=== PATIENT | female | born 1970 ===

== ENCOUNTER 2017-06-30 11:10 | Inpatient (IN) | payer OTHER ==
[~2017-06-30] VITALS: Ht 154.9 cm; Wt 81.6 kg
[2017-07-07] MEDS ORDERED: Mylicon 125MG PO (11:47)
[2017-07-07] MEDS ORDERED: DOCUSATE SODIU100 MG PO (11:47)
[2017-07-07] MEDS ORDERED: AMLODIPINE BESYL5 MG PO (11:47)
[2017-07-07] MEDS ORDERED: OXYC1TAB9 PO (11:47)
== END 2017-07-07 12:28 | disposition home or self-care (01) | DRG 743 ==
LOC: O/R 07-04 05:45 → OB/GYN 07-04 05:45 → SURG 07-04 10:45 → OB/GYN 07-04 11:58
PROVIDERS: Obstetrics & Gynecology
PROC: 0UT70ZZ Resection of Bilateral Fallopian Tubes, Open Approach (ICD-10-PCS; 2017-07-04)
PROC: 0UB10ZZ Excision of Left Ovary, Open Approach (ICD-10-PCS; 2017-07-04)
PROC: 3E1M38X Irrigation of Peritoneal Cavity using Irrigating Substance, Percutaneous Approach, Diagnostic (ICD-10-PCS; 2017-07-04)
PROC: 0UT90ZZ Resection of Uterus, Open Approach (ICD-10-PCS; principal; 2017-07-04 10:45)
PROC: B246ZZZ Ultrasonography of Right and Left Heart (ICD-10-PCS; 2017-07-06)
DX: D25.1 Intramural leiomyoma of uterus (principal); N80.0 Endometriosis of uterus; N83.292 Other ovarian cyst, left side; N92.0 Excessive and frequent menstruation with regular cycle; I10 Essential (primary) hypertension